=== PATIENT | male | born 1960 | race Caucasian/White ===

== ENCOUNTER 2019-06-16 16:12 | Emergency (ER) | payer OTHER ==
[~2019-06-16] VITALS: Ht 172.7 cm; Wt 83.9 kg
[2019-06-16] MEDS ORDERED: PRILOSEC10 MG PO (16:22)
[2019-06-16] MEDS ORDERED: METFORMIN HCL500 M3 PO (16:22)
[2019-06-16] MEDS ORDERED: LIPITOR10 MG PO (16:22)
[2019-06-16 16:37] LABS: URINE BILIRUBIN NEGATIVE (Negative); URINE BLOOD TRACE (Negative); URINE CLARITY CLEAR; URINE COLOR YELLOW; URINE GLUCOSE-RANDOM 2+ (Negative); URINE KETONES 1+ (Negative); URINE LEUKOCYTES-REFLEX NEGATIVE (Negative); URINE NITRITE-REFLEX NEGATIVE (Negative); URINE PROTEIN 1+ (Negative); URINE SPECIFIC GRAVITY >= 1.030 (1.005-1.030); URINE UROBILINOGEN 0.2 E.U./dl (0.2-1.0)
[2019-06-16 16:48] LABS: ABSOLUTE BASOPHILS 0.1 thou/uL (0.0-0.2); ABSOLUTE EOSINOPHILS 0.2 thou/uL (0.0-0.7); ABSOLUTE LYMPHOCYTES 1.6 thou/uL (0.8-5.3); ABSOLUTE MONOCYTES 1.2 thou/uL (0.0-1.2); ABSOLUTE NEUTROPHILS 9.8 thou/uL (1.6-8.1); BASOPHILS 0.6 %; EOSINOPHILS 1.3 %; LYMPHOCYTES 12.4 %; MCH 33.2 pg (26.0-34.0); MCHC 35.8 g/dL (28.0-37.0); MCV 92.6 fL (80.0-100.0); MONOCYTES 9.5 %; NUCLEATED RBCS 0 /100WBC; PLATELET COUNT* 194 thou/uL (150-400); POLYS 76.2 %; RBC 4.54 mil/uL (4.50-6.00); WBC 12.9 thou/uL (4.0-11.0)
[2019-06-16 16:56] LABS: CALCIUM 8.9 mg/dL (8.5-10.1); CREATININE 1.2 mg/dL (0.6-1.3); POTASSIUM 3.2 mmol/L (3.5-5.1)
[2019-06-16 17:00] LABS: ALBUMIN 3.7 g/dL (3.4-5.0); TOTAL BILIRUBIN 2.2 mg/dL (<0.1-1.0); TOTAL PROTEIN 7.4 g/dL (6.4-8.2)
[2019-06-16] MEDS ORDERED: CIPRO500 MG PO (18:35)
[2019-06-16] MEDS ORDERED: FLAGYL500 M1 PO (18:35)
[2019-06-16] MEDS ORDERED: NORCO 5-325 TA1 EAC1 PO (18:35)
[2019-06-16 18:59] VITALS: BP 158/99
--- NOTE | 2019-06-17 09:50 | EKG ---
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: : 1960 Requested By: Lynda Haro Order Number: [id number] MD: Chris Salcedo Measurements Intervals [place] Rate: 111 P: 53 [place]: 141 QRS: -34 QRSD: 82 T: 30 QT: 327 QTc: 445 Interpretive Statements Sinus tachycardia Inferior infarct, old Consider anterior infarct No previous ECG available for comparison Electronically Signed On 06-17-2019 9:50:29 SUSTAINABILITY PROJECT COORDINATOR by Chris Salcedo [email or web address] <ELECTRONICALLY SIGNED> By: Chris Salcedo MD, [facility] 06/17/19 0950 1626 1626 Chris Salcedo MD, FACC /EPI
== END 2019-06-16 18:59 | disposition home or self-care (01) ==
LOC: M.ERS 16:12
PROVIDERS: Physician Assistant
DX: K57.32 Diverticulitis of large intestine without perforation or abscess without bleeding (principal); R19.7 Diarrhea, unspecified; I10 Essential (primary) hypertension; E11.9 Type 2 diabetes mellitus without complications

== ENCOUNTER 2020-09-08 09:56 | Emergency (ER) | payer OTHER ==
[~2020-09-08] VITALS: Ht 172.7 cm; Wt 81.7 kg
[~2020-09-08 09:56] MED LIST: CIPRO500 MG PO; FLAGYL500 M1 PO; LIPITOR10 MG PO; METFORMIN HCL500 M3 PO; NORCO 5-325 TA1 EAC1 PO; PRILOSEC10 MG PO
[2020-09-08 10:36] LABS: ABSOLUTE EOSINOPHILS 0.1 thou/uL (0.0-0.7); ABSOLUTE LYMPHOCYTES 1.4 thou/uL (0.8-5.3); ABSOLUTE MONOCYTES 0.7 thou/uL (0.0-1.2); ABSOLUTE NEUTROPHILS 5.5 thou/uL (1.6-8.1); BASOPHILS 0.5 %; EOSINOPHILS 1.3 %; HEMATOCRIT 45.3 % (42.0-52.0); HEMOGLOBIN 15.9 gm/dL (14.0-18.0); LYMPHOCYTES 17.8 %; MCH 32.3 pg (26.0-34.0); MCHC 35.2 g/dL (28.0-37.0); MCV 91.6 fL (80.0-100.0); MONOCYTES 8.9 %; MPV 8.4 fl. (7.2-11.1); NUCLEATED RBCS 0 /100WBC; PLATELET COUNT* 215 thou/uL (150-400); POLYS 71.5 %; RBC 4.94 mil/uL (4.50-6.00); RDW-CV 13.4 % (10.5-14.5); WBC 7.7 thou/uL (4.0-11.0)
[2020-09-08 10:37] LABS: URINE BLOOD 1+ (Negative); URINE CLARITY CLEAR; URINE COLOR YELLOW; URINE GLUCOSE-RANDOM 2+ (Negative); URINE LEUKOCYTES-REFLEX NEGATIVE (Negative); URINE NITRITE-REFLEX NEGATIVE (Negative); URINE PROTEIN 2+ (Negative); URINE SPECIFIC GRAVITY >= 1.030 (1.005-1.030); URINE UROBILINOGEN 0.2 E.U./dl (0.2-1.0)
[2020-09-08 10:39] LABS: URINE KETONES 3+ (Negative)
[2020-09-08 10:40] LABS: ICTOTEST (BILI CONFIRMATORY) Negative (Negative); URINE BILIRUBIN 1+ (Negative)
[2020-09-08 10:43] LABS: CALCIUM 8.9 mg/dL (8.5-10.1); CREATININE 1.1 mg/dL (0.6-1.3); POTASSIUM 3.6 mmol/L (3.5-5.1)
[2020-09-08 10:43] LABS: SQUAMOUS 0-3 Few /LPF (0-3)
[2020-09-08 10:44] LABS: BACTERIA-REFLEX >30 Many /HPF (None Seen); MUCUS >6 Heavy strn/LPF (None Seen); URINE RBC 0-2 Rare /HPF (0-2); URINE WBC-REFLEX 0-5 Rare /HPF (0-5)
[2020-09-08 10:46] LABS: CRYSTALS None Seen /LPF (None Seen); FINE GRANULAR CASTS 0-3 Few /LPF (None Seen); HYALINE CASTS 4-10 Moderate /LPF (None Seen)
[2020-09-08 10:47] LABS: ALBUMIN 3.7 g/dL (3.4-5.0); TOTAL PROTEIN 7.7 g/dL (6.4-8.2)
[2020-09-08] MEDS ORDERED: CIPROFLOXACIN500 M1 PO (11:31)
[2020-09-08] MEDS ORDERED: PERCOCET 5-3251 EACH PO (11:31)
[2020-09-08] MEDS ORDERED: FLAGYL500 M1 PO (11:31)
[2020-09-08 11:35] VITALS: BP 137/95
--- NOTE | 2020-09-08 16:28 | EKG ---
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 : 1960 Requested By: Jose D Fleming Order Number: [id number] MD: Chris Salcedo Measurements Intervals [place] Rate: 87 P: 61 [place]: 162 QRS: -27 QRSD: 84 T: 37 QT: 353 QTc: 425 Interpretive Statements Sinus rhythm poor r wave progression Borderline left axis deviation Compared to ECG 06/16/2019 16:26:27 Sinus tachycardia no longer present Electronically Signed On 09-08-2020 16:27:55 OPERATIONS INTELLIGENCE SUPERINTENDENT by Chris Salcedo [email or web address] <ELECTRONICALLY SIGNED> By: Chris Salcedo MD, FAC 09/08/20 1627 1039 1039 Chris Salcedo MD, [facility] /EPI
== END 2020-09-08 11:35 | disposition home or self-care (01) ==
LOC: M.ERS 09:56
PROVIDERS: Family Medicine
DX: K57.32 Diverticulitis of large intestine without perforation or abscess without bleeding (principal); E11.9 Type 2 diabetes mellitus without complications; I10 Essential (primary) hypertension